=== PATIENT | female | born 1950 | race American Indian/Alaskan Native ===

== ENCOUNTER 2021-12-19 12:48 | Emergency (ER) | payer SELFPAY ==
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
[2021-12-20] MEDS ORDERED: LIDOCAINE-MPF (1%) 10 MG/1 ML VIAL 5 ML INFILTRATI ONE (07:10)
[2021-12-20] MEDS ORDERED: oxyCODONE /ACETAMINOPHEN 5-325MG TAB PO ONE (07:10)
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
[2021-12-20 07:59] VITALS: BP 147/92
== END 2021-12-20 08:48 | disposition home or self-care (01) ==
LOC: ED 12:48
DX: S02.92XA Unspecified fracture of facial bones, initial encounter for closed fracture (principal); J32.9 Chronic sinusitis, unspecified; Y08.89XA Assault by other specified means, initial encounter; Y93.9 Activity, unspecified; Y92.89 Other specified places as the place of occurrence of the external cause; Y99.8 Other external cause status
CPT/HCPCS: 70450; 70486; 96372; 99283; J0696; J3490